=== PATIENT | female | born 1955 | race African-American/Black ===

== ENCOUNTER 2016-07-11 16:24 | Outpatient (CLI) | payer OTHER | END 2016-07-11 19:33 | disposition home or self-care (01) | LOC: SRD 16:24 | PROVIDERS: ATTEND Internal Medicine | DX: K59.01 Slow transit constipation (principal) | CPT/HCPCS: 74000-TC ==

== ENCOUNTER 2016-09-26 11:59 | Outpatient (CLI) | payer OTHER | END 2016-09-26 18:56 | disposition home or self-care (01) | LOC: SRD 11:59 | PROVIDERS: ATTEND Internal Medicine | DX: M17.12 Unilateral primary osteoarthritis, left knee (principal); M25.561 Pain in right knee; Z96.651 Presence of right artificial knee joint ==

== ENCOUNTER 2018-01-24 13:20 | Emergency (ER) | payer OTHER ==
[~2018-01-24] VITALS: Ht 154.9 cm; Wt 113.4 kg
[2018-01-24 13:24] VITALS: BP_SYST 160
[2018-01-24] MEDS: prednisoLONE 15 MG/5 ML UDC PO ONE ×2 (13:45→13:46)
[2018-01-24 14:13] LABS: BASOPHILS % (AUTO) 0.4 % (0.0-2.0); EOSINOPHILS # (AUTO) 0.2 K/uL (0.0-0.4); EOSINOPHILS % (AUTO) 4.1 % (0.0-4.0); HEMATOCRIT 32.7 % (36-48); HEMOGLOBIN 11.8 g/dL (12.0-16.0); LYMPHOCYTES # (AUTO) 1.1 K/uL (1.0-5.5); LYMPHOCYTES % (AUTO) 21.8 % (20.5-51.5); MEAN CORPUSCULAR HEMOGLOBIN 34 pg (27-31); MEAN CORPUSCULAR HGB CONC 36 % (32-36); MEAN CORPUSCULAR VOLUME 94 fL (79.0-98.0); MONOCYTES # (AUTO) 0.5 K/uL (0.0-1.0); MONOCYTES % (AUTO) 10.4 % (1.7-9.3); NEUTROPHILS # (AUTO) 3.2 K/uL (1.8-7.7); NEUTROPHILS % (AUTO) 63.3 % (40.0-70.0); PLATELET COUNT (AUTO) 187 K/uL (130-430); RED BLOOD CELL COUNT(AUTO) 3.47 MIL/uL (4.2-6.2); RED CELL DISTRIBUTION WIDTH 13.5 % (9.0-15.0)
[2018-01-24 14:28] LABS: CALCIUM 9.1 mg/dL (8.4-11.0); CREATININE 0.72 mg/dL (0.55-1.30); POTASSIUM 4.2 mmol/L (3.5-5.1)
[2018-01-24 14:30] LABS: PROTHROMBIN TIME 10.6 SECS (9.5-12.5)
[2018-01-24 14:32] LABS: ALBUMIN 3.4 g/dL (3.4-4.8); TOTAL BILIRUBIN 0.3 mg/dL (0.0-1.0)
[2018-01-24 15:20] LABS: BILIRUBIN,URINE NEGATIVE (NEGATIVE); BLOOD, URINE NEGATIVE (NEGATIVE); CLARITY/URINE CLEAR (CLEAR); COLOR,URINE YELLOW (YELLOW); GLUCOSE,URINE NEGATIVE (NEGATIVE); KETONES,URINE NEGATIVE (NEGATIVE); LEUKOCYTE ESTERASE ,URINE NEGATIVE (NEGATIVE); NITRITE, URINE NEGATIVE (NEGATIVE); PROTEIN URINE NEGATIVE (NEGATIVE); UROBILINOGEN,URINE 0.2 (0.2-1.0)
[2018-01-24 15:33] LABS: BARBITURATE, URINE NEGATIVE (NEG <=200); UR TRICYCLIC ANTIDEPRESSANTS POSITIVE (NEG <=300); URINE AMPHETAMINE NEGATIVE (NEG <=500)
[2018-01-24 15:34] LABS: BENZODIAZEPINE, URINE NEGATIVE (NEG <=150); CANNABINOID, URINE NEGATIVE (NEG <=50); COCAINE, URINE NEGATIVE (NEG <=150); METHAMPHETAMINES SCREEN,URINE NEGATIVE (NEG <=500); OPIATE, URINE NEGATIVE (NEG <=100); PHENCYCLIDINE SCREEN,URINE NEGATIVE (NEG <=25); URINE METHADONE NEGATIVE (NEG <=200); URINE OXYCODONE SCREEN NEGATIVE (NEG <=100); URINE PROPOXYPHENE SCREEN NEGATIVE (NEG <=300)
[2018-01-24 18:20] VITALS: BP_SYST 160
== END 2018-01-24 17:20 | disposition left against medical advice (07) ==
LOC: SED 13:20
DX: R55 Syncope and collapse (principal); F20.9 Schizophrenia, unspecified; J45.909 Unspecified asthma, uncomplicated; I10 Essential (primary) hypertension; Z88.8 Allergy status to other drugs, medicaments and biological substances
CPT/HCPCS: 36415; 70450-TC; 71045; 80053; 80307; 81003; 84484; 85025; 85610-TC; 85730-TC; 93005; 99285

== ENCOUNTER 2019-03-25 16:01 | Outpatient (CLI) | payer OTHER | END 2019-03-25 21:07 | disposition home or self-care (01) | LOC: SLB 16:01 | PROVIDERS: ATTEND Psychiatry & Neurology Psychiatry | DX: Z00.00 Encounter for general adult medical examination without abnormal findings (principal) | CPT/HCPCS: 87081 ==

== ENCOUNTER → 2019-03-26 | Outpatient (CLI) | payer OTHER ==
[2019-03-26 11:09] LABS: CHOLESTEROL 140 mg/dL (<200); HDL CHOLESTEROL 50 mg/dL (>55); LDL CHOLESTEROL 74 mg/dL (<100); TRIGLYCERIDES 61 mg/dL (30-150)
== END | disposition home or self-care (01) ==
LOC: SLB 09:37
PROVIDERS: ATTEND Psychiatry & Neurology Psychiatry
DX: Z00.00 Encounter for general adult medical examination without abnormal findings (principal)
CPT/HCPCS: 36415; 80061; 83036

== ENCOUNTER 2019-04-21 17:11 | Emergency (ER) | payer OTHER ==
[~2019-04-21] VITALS: Ht 162.6 cm; Wt 79.4 kg
[2019-04-21 17:23] VITALS: BP_SYST 149
--- NOTE | 2019-04-21 19:30 | NUR ---
PLACED IN BED 6. BROUGHT IN BY AMBULANCE FROM [facility] FOR GENERALIZED WEAKNESS. ORIGINAL DESTINATION WAS [place] BUT WAS REFUSED BECAUSE SHE APPARENTLY COULD NOT GET UP AND WALK. WAS BROUGHT BACK TO [facility] AND ACCORDING TO EMS. PT. ABLE TO WALK TO THE RESTROOM WITHOUT HELP. PT. WAS SENT TO [facility] FOR MEDICAL CLEARANCE.
[2019-04-21] MEDS ORDERED: QUET300T2 PO (20:53)
[2019-04-21] MEDS ORDERED: TRAZ-219 PO (20:53)
--- NOTE | 2019-04-21 22:37 | NUR ---
PT. WANTED TO TAKE HER DUE HOME MEDS OF TRAZODONE 100 MG PO QHS AND SEROQUEL 300 MG PO QHS. ONLY SEROQUEL GIVEN FOR NOW PER .
--- NOTE | 2019-04-21 23:54 | NUR ---
COMPLAINED OF SOB. SAO2=94-96% ON ROOM AIR. (+) WHEEZING BILATERALLY ON AUSCULTATION. ER-MD MADE AWARE. CAME BY BEDSIDE TO EVALUATE PT.
--- NOTE | 2019-04-22 00:11 | NUR ---
BREATHING TREATMENT GIVEN BY RT.
[2019-04-22] MEDS ORDERED: IPRATROPIUM/ALBUTEROL SULFATE 3 ML AMPUL.NEB (DUONEB) INH ONE (00:15)
--- NOTE | 2019-04-22 00:45 | NUR ---
VERBALIZED RELIEF OF SOB AFTER BREATHING TREATMENT.
--- NOTE | 2019-04-22 02:06 | NUR ---
TRAZODONE 100 MG PO GIVEN PER ER-MD'S VERBAL ORDER.
--- NOTE | 2019-04-22 02:59 | NUR ---
Note rosi in EDM - 04/22/19 at 0630 by [email or web address] COMPLAINED OF WORSENING LEFT LEG PAIN. ANOTHER DOSE OF PRN MORPHINE 2 MG IVP GIVEN. VS REMAIN STABLE.
--- NOTE | 2019-04-22 04:00 | NUR ---
ASLEEP, NO PAIN OR DISCOMFORT NOTED. VS REMAIN STABLE.
--- NOTE | 2019-04-22 06:28 | NUR ---
AWAKE, NOT IN ANY KIND OF DISTRESS. PT. REMAINS STABLE AND PAIN FREE. SNADWICH AND JUICE GIVEN REQUESTED.
--- NOTE | 2019-04-22 07:10 | NUR ---
ENDORSED CARE TO KARELY ALICEA.
--- NOTE | 2019-04-22 07:12 | NUR ---
Report received from ANKIT Aldridge for continuation of care.
--- NOTE | 2019-04-22 07:30 | NUR ---
Patient is resting in bed. No signs or symptoms of distress noted.
--- NOTE | 2019-04-22 08:18 | NUR ---
CLARITA TOOL SHAPER SETUP OPERATOR TEX.
--- NOTE | 2019-04-22 08:20 | NUR ---
Social Service Note: PATIENT REGISTRATION CLERK spoke with nurse in ED for update. PATIENT REGISTRATION CLERK called [facility] ([phone]) and left a message for the social workers to confirm what pt's DC plan was when pt left [facility].
--- NOTE | 2019-04-22 09:30 | NUR ---
Patient ambulated to restroom without assistance.
--- NOTE | 2019-04-22 09:30 | NUR ---
Note zaccolton in ED - 04/22/19 at 0947 by REMY Patient is resting in bed. No signs or symptoms of distress noted.
--- NOTE | 2019-04-22 09:35 | NUR ---
Patient [place] [facility] [place]
--- NOTE | 2019-04-22 11:05 | NUR ---
Patient refused blood draw. Dr. Almazan made aware.
--- NOTE | 2019-04-22 11:06 | NUR ---
Dr. Almazan in to talk to patient.
--- NOTE | 2019-04-22 11:16 | NUR ---
Social Service Note: AIRCRAFT ENGINE ASSEMBLER and CM director met with pt at bedside to discuss pt's plan. AIRCRAFT ENGINE ASSEMBLER and CM director spoke with pt about what happened when pt arrived to [facility] after being discharged from [facility]; pt states that her knee was stiff and she was not able to walk at that time. Pt does state that she is able to ambulate. Pt reported that she has been at [facility] since "January" and was sent from [facility] to [place]; pt reports being placed on several holds at [facility]. Pt states that before [facility] she was at a board and care in [place]. Pt states that she did not like [facility] and does not want to go there. When asked about her plans for discharge; pt states that she has a "Catina Shrestha" who will be coming between 1:00pm-2:00pm today to take her to [employer]; pt reports that she has a house in [place]. Pt cannot provide AIRCRAFT ENGINE ASSEMBLER/CM Director with a phone number for her ; pt states that they are in the process of moving and have new phones and she is not aware of the number. Pt states that her was here at the hospital last night. Pt will not disclose her financial support; Pt states that she is "financially loaded" and can pay for transportation and help if needed. When asked where pt wants to be discharged; pt will only state that her is coming to get her between 1:00pm and 2:00pm today. Pt states that she and her are in the process of moving to a "well known" board and care in [place]; pt does not recall the name of board and care. AIRCRAFT ENGINE ASSEMBLER/CM Director have spoken to [facility] social media coordinator who states that pt did not mention having a to social media coordinator; social media coordinator states that pt was agreeable at the time of discharge to go to [facility]. Upon assessment with pt; pt appears delusional and is unable to formulate a plan for self care. [facility] has updated ED physician that pt needs to be evaluated by psychiatrist or PET for further placement. AIRCRAFT ENGINE ASSEMBLER will reach out to Department of Mental for assistance. Addendum: 04/22/19 at 1145 by Alla Mcnamara LCSW [facility] has faxed [employer] referral for older adults to the Department of Mental Health (Nuria [phone]).
--- NOTE | 2019-04-22 11:30 | NUR ---
Patient ambulated to restroom without assistance.
--- NOTE | 2019-04-22 11:36 | NUR ---
Patient returned to [facility].
--- NOTE | 2019-04-22 11:57 | NUR ---
Patient refused EKG. Dr. Almazan made aware.
--- NOTE | 2019-04-22 12:00 | NUR ---
Patient refused urine sample.
[2019-04-22] MEDS ORDERED: IPRATROPIUM/ALBUTEROL SULFATE 3 ML AMPUL.NEB (DUONEB) ONE (12:11)
--- NOTE | 2019-04-22 12:30 | NUR ---
Patient resting comfortably in [facility].
--- NOTE | 2019-04-22 13:30 | NUR ---
Patient resting comfortably in [facility].
--- NOTE | 2019-04-22 14:08 | NUR ---
Social Service Note: AUTOMATIC PINSETTER MECHANIC and CM Director returned to ED; pt states that she has been sleeping and has not met with anyone. AUTOMATIC PINSETTER MECHANIC and CM Director spoke with nurse regarding the psychiatric consult; pt's nurse states that psychiatric consult had not been called. Pt's nurse states that pt is refusing all care in the ED. AUTOMATIC PINSETTER MECHANIC and CM Director asked for psychiatrist to be called for psychiatric evaluation due to pt's delusions and inability to formulate a plan for self care.
--- NOTE | 2019-04-22 14:30 | NUR ---
Patient is resting comfortably in [place].
--- NOTE | 2019-04-22 15:30 | NUR ---
Patient is resting comfortably in [place].
--- NOTE | 2019-04-22 16:00 | NUR ---
Dr. Salazar on site to see patient.
--- NOTE | 2019-04-22 16:30 | NUR ---
Patient is resting comfortably in [place].
--- NOTE | 2019-04-22 16:46 | NUR ---
Social Service Note: BREAKER OPERATOR spoke with pt at bedside; pt states that she is agreeable to go to [facility]; Dr. Hein states that Caron from [facility] will assess pt in the morning (04/23/19). BREAKER OPERATOR spoke with pt and asked pt who manages her finances; pt states that she manages her finances and does not have a re-payee; pt will not disclose if she has a KASANDRA card with her; pt states that her ssi checks are deposited to her bank. Dr. Hein also stated that he will call [facility] to see if they can assist with placement today. WOLF provided diesel automotive technician with [facility] contact information ([phone]).
--- NOTE | 2019-04-22 17:30 | NUR ---
Patient is resting in [facility].
--- NOTE | 2019-04-22 18:30 | NUR ---
Patient resting in [facility].
--- NOTE | 2019-04-22 18:55 | NUR ---
ANKIT Alanis from [facility] states that patient will be accepted. Report to be called to [facility] Patient assigned to room 62A. Annabelle asks for patient to be sent after change of shift at 1900.
--- NOTE | 2019-04-22 19:08 | NUR ---
Report given to ANKIT Talbot for continuation of care.
--- NOTE | 2019-04-22 20:00 | NUR ---
Report called to Giancarlo at [facility]. Pt Medically cleared. Going to Bed 62A
[2019-04-22 20:56] VITALS: BP_SYST 138
--- NOTE | 2019-04-22 20:56 | NUR ---
Patient to be transferred to [facility]. Is being transferred due to higher level of care. Receiving facility has accepting physician and available space. ER physician has signed transfer form. Patient or responsible green party has agreed to transfer and signed form. Patient belongings inventoried and will be sent with patient. Copy of nursing notes, lab reports, EKG, Physicians Orders and X-rays to be sent with patient. Report called to Giancarlo at receiving facility. Receiving physician is Marie. [facility] ambulance service is on scene for transfer.
== END 2019-04-22 20:56 ==
LOC: SED 17:11
DX: F23 Brief psychotic disorder (principal); J45.909 Unspecified asthma, uncomplicated; I10 Essential (primary) hypertension; Z88.8 Allergy status to other drugs, medicaments and biological substances; Z79.899 Other long term (current) drug therapy
CPT/HCPCS: 94640; 99285; J7620